=== PATIENT | male | born 1980 | race Caucasian/White ===

== ENCOUNTER 2020-04-05 19:27 | Inpatient (IN) | payer MEDICAID, SELFPAY ==
[~2020-04-05] VITALS: Ht 180.3 cm; Wt 70.5 kg
[2020-04-05 20:33] LABS: HEMATOCRIT 50.2 % (42.0-52.0); HEMOGLOBIN 17.3 g/dl (13.5-17.5); MEAN CORPUSCULAR HEMOGLOBIN 32.2 pg (27.0-33.0); MEAN CORPUSCULAR HGB CONC 34.5 g/dl (32.0-36.5); MEAN CORPUSCULAR VOLUME 93.3 fl (80.0-96.0); PLATELET COUNT, AUTOMATED 197 10^3/uL (150-450); RED BLOOD COUNT 5.38 10^6/uL (4.30-6.10); WHITE BLOOD COUNT 5.4 10^3/uL (4.0-10.0)
[2020-04-05] MEDS ORDERED: antibiotic (21:13)
[2020-04-05 21:22] LABS: ACETAMINOPHEN LEVEL < 2.0 UG/ML (10.0-30.0); ALBUMIN 4.3 GM/DL (3.2-5.2); ALT/SGPT 21 U/L (12-78); BILIRUBIN,DIRECT 0.1 MG/DL (0.0-0.2); BILIRUBIN,TOTAL 0.5 MG/DL (0.2-1.0); BLOOD UREA NITROGEN 10 MG/DL (7-18); CALCIUM LEVEL 9.2 MG/DL (8.5-10.1); CARBON DIOXIDE LEVEL 32 MEQ/L (21-32); CHLORIDE LEVEL 102 MEQ/L (98-107); CREATININE FOR GFR 1.03 MG/DL (0.70-1.30); ETHYL ALCOHOL (ETHANOL) < 0.003 % (0.000-0.010); GLOMERULAR FILTRATION RATE > 60.0 (>60); GLUCOSE, FASTING 86 MG/DL (70-100); POTASSIUM SERUM 3.7 MEQ/L (3.5-5.1); SALICYLATE LEVEL 4.5 MG/DL (5.0-30.0); SODIUM LEVEL 139 MEQ/L (136-145); TOTAL PROTEIN 6.9 GM/DL (6.4-8.2)
[2020-04-05 22:18] LABS: RSV AMPLIFICATION NEGATIVE (NEGATIVE)
[2020-04-05 22:19] LABS: AMPHETAMINES LEVEL URINE NEGATIVE (NEGATIVE); BARBITURATES URINE NEGATIVE (NEGATIVE); BENZODIAZEPINES URINE NEGATIVE (NEGATIVE); CANNABINOIDS URINE POSITIVE (NEGATIVE); COCAINE METABOLITE URINE NEGATIVE (NEGATIVE); METHADONE URINE NEGATIVE (NEGATIVE); OPIATES URINE NEGATIVE (NEGATIVE); PHENCYCLIDINE URINE NEGATIVE (NEGATIVE)
[2020-04-06] MEDS ORDERED: MAALOX 30 ML SUSP *UDC PO PRN
[2020-04-06] MEDS ORDERED: traZODone 50 MG TAB PO PRN
[2020-04-06] MEDS ORDERED: IBUPROFEN 400 MG TAB PO PRN
[2020-04-06] MEDS ORDERED: MOM 30ML SUSPENSION UDC PO PRN
[2020-04-06] MEDS ORDERED: NICOTINE 21MG/24HR 1 EA TRANSDERMAL TD PRN
--- OUTSIDE RECORDS SUMMARY | 2020-04-06 00:29 | CCD ---
Author Author [facility] Organization [facility] Address Unknown Phone Unavailable Care Team Providers Care Correctional [employer] Supervisor Name Role Phone JONES, W ANDREW PA Unavailable Unavailable JONES, W ANDREW PA Unavailable Unavailable JONES, W ANDREW PA Unavailable Unavailable JONES, W ANDREW PA Unavailable Unavailable JONES, W ANDERW PA Unavailable Unavailable JONES, W ANDREW PA Unavailable Unavailable JONES, W ANDREW PA Unavailable Unavailable JONES, W ANDREW PA Unavailable Unavailable JONES, W ANDREW PA Unavailable Unavailable JONES, W ANDREW PA Unavailable Unavailable JONES, W ANDREW PA Unavailable Unavailable JONES, W ANDREW PA Unavailable Unavailable JONES, W ANDREW PA Unavailable Unavailable JONES, W ANDREW PA Unavailable Unavailable JONES, W ANDREW PA Unavailable Unavailable JONES, W ANDREW PA Unavailable Unavailable JONES, W ANDREW PA Unavailable Unavailable JONES, W ANDREW PA Unavailable Unavailable JONES, W ANDREW PA Unavailable Unavailable JONES, W ANDREW PA Unavailable Unavailable JONES, W ANDREW PA Unavailable Unavailable JONES, W ANDREW PA Unavailable Unavailable JONES, W ANDREW PA Unavailable Unavailable JONES, W ANDREW PA Unavailable Unavailable JONES, W ANDREW PA Unavailable Unavailable JONES, W ANDREW PA Unavailable Unavailable JONES, W ANDREW PA Unavailable Unavailable JONES, W ANDREW PA Unavailable Unavailable JONES, W ANDREW PA Unavailable Unavailable JONES, W ANDREW PA Unavailable Unavailable JONES, W ANDREW PA Unavailable Unavailable JONES, W ANDREW PA Unavailable Unavailable JONES, W ANDREW PA Unavailable Unavailable JONES, W ANDREW PA Unavailable Unavailable JONES, W ANDREW PA Unavailable Unavailable JONES, W ANDREW PA Unavailable Unavailable JONES, W ANDREW PA Unavailable Unavailable JONES, W ANDREW PA Unavailable Unavailable JONES, W ANDREW PA Unavailable Unavailable JONES, W ANDREW PA Unavailable Unavailable JONES, W ANDREW PA Unavailable Unavailable JONES, W ANDREW PA Unavailable Unavailable JONES, W ANDREW PA Unavailable Unavailable JONES, W ANDREW PA Unavailable Unavailable JONES, W ANDREW PA Unavailable Unavailable JONES, W ANDREW PA Unavailable Unavailable Re-disclosure Warning The records that you are about to access may contain information from federally-assisted alcohol or drug abuse programs. If such information is present, then the following federally mandated warning applies: This information has been disclosed to you from records protected by federal confidentiality rules (42 CFR part 2). The federal rules prohibit you from making any further disclosure of this information unless further disclosure is expressly permitted by the written consent of the person to whom it pertains or as otherwise permitted by 42 CFR part 2. A general authorization for the release of medical or other information is NOT sufficient for this purpose. The Federal rules restrict any use of the information to criminally investigate or prosecute any alcohol or drug abuse patient.The records that you are about to access may contain highly sensitive health information, the redisclosure of which is protected by Article 27-F of the [facility] Public Health law. If you continue you may have access to information: Regarding HIV / AIDS; Provided by facilities licensed or operated by the [facility] Office of Mental Health; or Provided by the [facility] Office for People With Developmental Disabilities. If such information is present, then the following [facility] mandated warning applies: This information has been disclosed to you from confidential records which are protected by state law. State law prohibits you from making any further disclosure of this information without the specific written consent of the person to whom it pertains, or as otherwise permitted by law. Any unauthorized further disclosure in violation of state law may result in a fine or alf sentence or both. A general authorization for the release of medical or other information is NOT sufficient authorization for further disc losure. Allergies and Adverse Reactions Type Description Substance Reaction Status Data Source(s ) [id number] [facility] ([facility]) Encounters Encounter Providers Location Date Indications Data Source(s ) OutpatientOFFICE/OUTPATIENT VISIT, [facility] 12/28/2019 Attender: ANDREW DIAZ 12/28/2019 01:23:10 PM EDT [facility]MAK[facility] ([facility] Medications Medication Brand Name Start Date Product Form Dose Route Admi nistrative Instructions Pharmacy Instructions Status Indications Reaction Description Data Source(s) doxycycline hyclate 100 MG Oral Capsule doxycycline hy clate 100 mg capsule doxycycline hyclate 100 mg capsule 12/28/2019 12:00:00 AM EDT 2 completed , Take 2 capsule orally One Time Dose 12/28/2019 CHARTMAKER ([facility]) Insurance Providers Payer name Policy type / Coverage type Policy ID Covered green party ID Covered green party's relationship to russell Policy Russell Plan Information SELF PAY ONLY [id number] SP [id number] ID IDENTIFICATION [id number] [facility] [id number] [facility] W [id number] Empl [id number] [facility] W [id number] Self [id number] Pending Medicaid D pending SELF pen ding SELF PAY UNAVAILABLE SP UNAVAILA BLE [facility] [id number] SP [id number] [place] MED[place] 2 [id number] SELF PAY 2 UNAVAILABLE 1 UNAVAILA BLE MEDICAID [facility] 3 [id number] Y O UNAVAILABLE UNAVAILA BLE Problems, Conditions, and Diagnoses Code Display Name Description Problem Type Effective Dates Data Source(s) S70.361A Insect bite (nonvenomous), right thigh, initial encounter Insect bite (nonvenomous), right thigh, initial encounter (S70.361A) 12/28/2019 [id number] 12/28/2019 01:23:10 PM EDT CHARTMAKER ([facility]) Surgeries/Procedures Procedure Description Date Indications Data Source(s) COLLECTION VENOUS BLOOD VENIPUNCTURE 12/28/2019 12:00: 00 AM EDT CHARTMAKER ([facility]) Results ID Date Data Source [id number] 12/28/2019 12:00:00 AM EDT [facility] ([facility]) Name Value Range Interpretation Code Description Data Deanna rce(s) Supporting Document(s) LYME IGM/IGG AB @ NEGATIVE LYME IGM/IGG AB @: NEGATIVE 12/28/2019 CHARTMAKER ([facility]) Procedure Social History Code Duration Value Status Description Data Source(s ) Smoking 12/28/2019 12:00:00 AM EDT Smoker, current status unkn own completed Smoker, current status unknown CHARTMAKER ([facility]) Vital Signs ID Date Data Source UNK Name Value Range Interpretation Code Description Data Source(s) Inhaled oxygen concentration 21 % 21 % CHARTMAKER ([facility]) Oxygen saturation in Arterial blood by Pulse oximetry 97 % 97 % CHARTMAKER ([facility]) Body mass index (BMI) [Ratio] 22.3254808536688 kg/m2 22.5032359903995 kg/m2 CHARTMAKER ([facility]) Body weight 158.25 [lb_av] 158.25 [lb_av] CHART MAKER ([facility]) Body height 71 [in_i] 71 [in_i] CHARTMAKER ([facility]) Diastolic blood pressure 82 mm[Hg] 82 mm[Hg] CHARTMAKER ([facility]) Systolic blood pressure 120 mm[Hg] 120 mm[Hg] C HARTOKKER ([facility]) Heart rate 71 /min 71 /min CHARTMAKER ([facility]) Body temperature 97.2 [degF] 97.2 [degF] KIMBERLY LARA ([facility])
[2020-04-06 01:29] VITALS: BP 129/87
[2020-04-06] MEDS ORDERED: OLANZapine 5 MG TAB PO SCH (09:00)
[2020-04-06] MEDS ORDERED: INFLUENZA QUADRIVALENT PF VACCINE 0.5ML SYRINGE IM ONE (09:00)
[2020-04-06] MEDS ORDERED: diphenhydrAMINE 50MG/ML VIAL (J1200) IM STA (10:01)
[2020-04-06] MEDS ORDERED: LORazepam 2 MG/ML VIAL IM STA (10:01)
[2020-04-06] MEDS ORDERED: HALOPERIDOL 5MG/ML VIAL (J1630 PER 1) IM STA (10:01)
[2020-04-06 13:21] LABS: FREE T3 2.8 PG/ML (2.2-4.0); FREE T4 1.29 NG/DL (0.76-1.46); THYROID STIMULATING HORMONE 0.851 uIU/ML (0.358-3.740)
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
[2020-04-06] MEDS ORDERED: HALOPERIDOL 5MG/ML VIAL (J1630 PER 1) IM ONE (15:00)
[2020-04-06] MEDS ORDERED: LORazepam 2 MG/ML VIAL IM ONE (15:00)
[2020-04-06] MEDS ORDERED: diphenhydrAMINE 50MG/ML VIAL (J1200) IM ONE (15:00)
--- NOTE | 2020-04-06 18:32 | HPEPDOC ---
[facility] Medical History & Physical Date of Admission Apr 05, 2020 Date of Service: Apr 06, 2020 History and Physical CHIEF COMPLAINT: Unspecified psychotic disorder HISTORY OF PRESENT ILLNESS: Mr. Obrien is a 39-year-old male with history of acute pericarditis who was brought in by the police for homicidal threats sent via email. 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 He believes that this is the cause of many of his problems. He tells me that he is very upset of state regulations on testing for heavy metal. Otherwise he tells me that he does a lot of fishing. Otherwise he does have concerns for palpitations. He started feeling more about 8-9 months ago. He does have panic attacks in which he'll feel fluttering in his chest. When he calms down they become better. He hasn't talked to his physician about this. He does not have trust in doctors as his high school director once told he did not have pericarditis and that his PCP wouldn't order him the Lyme test he wanted. His mom had thyroid problems in the past. We talked about doing thyroid studies which he has been agreeable to. PAST MEDICAL HISTORY: 1. Acute pericarditis PAST SURGICAL HISTORY: 1. Left femoral artery graft secondary to trauma 2. Dental implants SOCIAL HISTORY: Tobacco use: Smokes on and off, would not comment on how long he's been smoking for ETOH: Seldom Illicit drug use: Marijuana FAMILY HISTORY: Father: Drug abuse problem Mother: Thyroid ALLERGIES: Please see below. REVIEW OF SYSTEMS: CONSTITUTIONAL: Denies any fever or chills. ENT: Denies sore throat. RESPIRATORY: Denies shortness of breath. Denies cough. CARDIOVASCULAR: Denies chest pain. Reports palpitations. GASTROINTESTINAL: Denies abdominal pain. Denies diarrhea. GENITOURINARY: Denies dysuria. CUTANEOUS: Reports freckling on hands bilateral. MUSCULOSKELETAL: Denies muscle weakness. NEUROLOGICAL: Denies neuropathy. Denies paresthesias. PSYCHOLOGICAL: Reports anxiety. HOME MEDICATIONS: Please see below. PHYSICAL EXAMINATION: VITAL SIGNS: Temperature 97, pulse 66, respiratory rate 16, blood pressure 129/87, pulse oximetry 96% on room air. GENERAL: Comfortable, in no apparent distress. HEENT: Head normocephalic/atraumatic, EOMI, sclera clear. NECK: Supple RESPIRATORY: Lungs clear to auscultation bilaterally, no rales, wheeze or rhonchi. CARDIOVASCULAR: Regular rate and rhythm. ABDOMEN: Soft, nontender, no guarding or rebound tenderness. Normal bowel sounds. MUSCLE SKELETAL: Muscle strength 5/5 in all extremities. NEUROLOGICAL: CN 312 grossly intact, no focal deficits noted. PSYCHOLOGICAL: Anxious LABORATORY DATA: See below. MICROBIOLOGY: Please see below. ASSESSMENT and PLAN: 1. Unspecified psychotic disorder Being managed in the inpatient mental health unit 2. Palpitations No arrhythmia auscultated May be secondary to anxiety TSH, free T4, free T3 are are within normal limits Thank you for consulting us. We will sign off at this time. If there are any further questions or concerns, please do not hesitate to reconsult us. Vital Signs Vital Signs Date Time Temp Pulse Resp B/P (MAP) Pulse Ox O2 Delivery O2 Flow Rate FiO2 04/06/20 01:29 97.0 66 16 129/87 (101) 96 Room Air Laboratory Data Labs 24H Laboratory Tests 2 04/05/20 19:40: Nucleated Red Blood Cells % (auto) 0.0, Anion Gap 5L, Glomerular Filtration Rate > 60.0, Calcium Level 9.2, Total Bilirubin 0.5, Direct Bilirubin 0.1, Aspartate Amino Transf (AST/SGOT) 13, Alanine Aminotransferase (ALT/SGPT) 21, Alkaline Phosphatase 88, Total Protein 6.9, Albumin 4.3, Albumin/Globulin Ratio 1.7, Thyroid Stimulating Hormone (TSH) 1.380, Salicylates Level 4.5L, Acetaminophen Level < 2.0L, Ethyl Alcohol Level < 0.003 04/05/20 21:24: Urine Opiates Screen NEGATIVE, Urine Methadone Screen NEGATIVE, Urine Barbiturates Screen NEGATIVE, Urine Phencyclidine Screen NEGATIVE, Urine Amphetamines Screen NEGATIVE, Urine Benzodiazepines Screen NEGATIVE, Urine Cocaine Metabolite Screen NEGATIVE, Urine Cannabinoids Screen POSITIVEH, Coronavirus (COVID-19)(PCR) NEGATIVE, Influenza Type A (RT-PCR) NEGATIVE, Influenza Type B (RT-PCR) NEGATIVE, Respiratory Syncytial Virus (PCR) NEGATIVE 04/06/20 12:05: Thyroid Stimulating Hormone (TSH) 0.851, Free Thyroxine 1.29, Free Triiodothyronine 2.8 CBC/BMP Laboratory Tests 04/05/20 19:40 Home Medications No Active Prescriptions or Reported Meds Allergies Coded Allergies: acetaminophen (Verified Allergy, Unknown, "not good", 04/05/20) "my mom told me I had it once when I was young and it wasn't good". Reaction unknown to pt oxycodone (Verified Allergy, Unknown, "not good", 04/05/20) "my mom told me I had it once when I was young and it wasn't good". Reaction unknown to pt A-FIB/CHADSVASC A-FIB History Current/History of A-Fib/PAF?: No CYNTHIA ART DO Apr 06, 2020 16:51
[2020-04-06] MEDS ORDERED: OLANZapine ORAL DISINTEGRATING TAB 5MG PO PRN ×2 (19:30)
[2020-04-06 19:32] VITALS: BP 120/82
[2020-04-06] MEDS: OLANZapine 10 MG TAB PO SCH (21:00)
[2020-04-07 06:47] VITALS: BP 177/69
[2020-04-07] MEDS: OLANZapine 10 MG TAB PO SCH ×2 (09:00→20:01)
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
[2020-04-08 06:18] VITALS: BP 141/69
[2020-04-08] MEDS: OLANZapine 10 MG TAB PO SCH ×2 (09:00→21:00)
[2020-04-08] MEDS ORDERED: diphenhydrAMINE 50MG/ML VIAL (J1200) IM STA (13:23)
[2020-04-08] MEDS ORDERED: LORazepam 2 MG/ML VIAL IM STA (13:23)
[2020-04-08] MEDS ORDERED: HALOPERIDOL 5MG/ML VIAL (J1630 PER 1) IM ONE (13:42)
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
[2020-04-09 06:53] VITALS: BP 133/70
[2020-04-09] MEDS: OLANZapine 10 MG TAB PO SCH ×2 (09:00→20:06)
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
[2020-04-09 16:06] VITALS: BP 123/78
[2020-04-10] MEDS: OLANZapine 10 MG TAB PO SCH ×2 (09:00→21:00)
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
[2020-04-10 16:20] VITALS: BP 119/79
[2020-04-11 06:31] VITALS: BP 121/73
[2020-04-11] MEDS: OLANZapine 10 MG TAB PO SCH ×2 (07:58→20:39)
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
[2020-04-11 16:35] VITALS: BP 119/76
[2020-04-12 06:23] VITALS: BP 126/75
[2020-04-12] MEDS: OLANZapine 10 MG TAB PO SCH (08:32)
[2020-04-12] MEDS ORDERED: OLAN5TAB PO (09:59)
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
== END 2020-04-12 13:00 | disposition home or self-care (01) | DRG 753 ==
LOC: M ED 19:27 → M ED INP 23:55 → M PSY 04-06 00:34
PROVIDERS: ADMIT Psychiatry & Neurology Psychiatry; ATTEND Psychiatry & Neurology Psychiatry
DX: F31.9 Bipolar disorder, unspecified (principal); F12.10 Cannabis abuse, uncomplicated; R00.2 Palpitations; F17.200 Nicotine dependence, unspecified, uncomplicated; Z20.822 Contact with and (suspected) exposure to COVID-19; Z59.0 Homelessness; Z88.5 Allergy status to narcotic agent; Z88.6 Allergy status to analgesic agent